=== PATIENT | male | born 1975 | race Caucasian/White ===

== ENCOUNTER 2022-01-30 12:17 | Emergency (ER) | payer OTHER ==
[2022-01-30] MEDS ORDERED: CLEOCIN HCL150 MG PO (13:59)
== END 2022-01-30 14:33 | disposition home or self-care (01) ==
LOC: FER 12:17
DX: K05.219 Aggressive periodontitis, localized, unspecified severity (principal); K02.9 Dental caries, unspecified; F17.210 Nicotine dependence, cigarettes, uncomplicated; Z28.310 Unvaccinated for COVID-19; Z88.6 Allergy status to analgesic agent
CPT/HCPCS: 99282; Q0163

== ENCOUNTER 2022-03-18 09:30 | Emergency (ER) | payer OTHER ==
[~2022-03-18 09:30] MED LIST: CLEOCIN HCL150 MG PO
[2022-03-18 10:57] LABS: BILIRUBIN NEGATIVE (NEGATIVE); BLOOD NEGATIVE Ery/uL (NEGATIVE); CLARITY CLEAR (CLEAR); COLOR YELLOW (YELLOW); GLUCOSE (U) NORMAL (NORMAL); LEUKOCYTES NEGATIVE Leu/uL (NEGATIVE); NITRITE NEGATIVE (NEGATIVE); PROTEIN NEGATIVE (NEGATIVE); SPECIFIC GRAVITY >=1.030 (1.001-1.030); UROBILINOGEN 0.2 mg/dL (0.2-1.0)
[2022-03-18 10:59] LABS: BASOPHIL 0.8 % (0-2); EOSINOPHIL 3.7 % (0-5); HGB 16.6 g/dl (13.2-18.0); LYMPHOCYTE 33.9 % (15-48); MCH 30.3 pg (25.0-31.0); MCHC 33.2 g/dL (32.0-36.0); MCV 91.2 fL (78.0-100.0); MONOCYTE 7.8 % (0-12); MPV 9.7 fL (6.0-9.5); NEUTROPHIL 53.4 % (41-80); NRBC 0; PLT 337 K/uL (150-400); RBC 5.48 M/uL (4.70-6.00); RDW 13.9 % (11.5-14.0); WBC 8.3 K/uL (4.0-10.5)
[2022-03-18 12:08] LABS: ALBUMIN 3.9 g/dL (3.4-5.0); BILIRUBIN - TOTAL 0.3 mg/dL (0.2-1.0); BUN/CREAT RATIO (CALC) 13.6 RATIO; CREATININE 0.88 mg/dL (0.67-1.17); GLOBULIN (CALCULATION) 3.4 g/dL; POTASSIUM 4.5 mmol/L (3.5-5.1); TOTAL PROTEIN 7.3 g/dL (6.4-8.2)
== END 2022-03-18 12:32 | disposition home or self-care (01) ==
LOC: FER 09:30
PROVIDERS: Emergency Medicine
DX: B34.9 Viral infection, unspecified (principal); F15.13 Other stimulant abuse with withdrawal; Z20.822 Contact with and (suspected) exposure to COVID-19; Z28.310 Unvaccinated for COVID-19
CPT/HCPCS: 36415; 71046; 80053; 81003; 84484; 85025; 93005; U0002